=== PATIENT | male | born 1970 | race Hispanic/Latino ===

== ENCOUNTER → 2025-06-22 | Outpatient (CLI) | payer OTHER ==
[2025-06-22 21:22] VITALS: PULSE 52; RESP 12
[2025-06-22 22:00] VITALS: PULSE 54; RESP 12
[2025-06-22 22:35] VITALS: PULSE 53; RESP 12
[2025-06-22 23:06] VITALS: PULSE 53; RESP 10
[2025-06-22 23:36] VITALS: PULSE 51; RESP 12
[2025-06-23] VITALS (19 sets, daily range): PULSE 48–59; RESP 5–16
== END | disposition home or self-care (01) ==
LOC: SLP 19:38
PROVIDERS: ATTEND Nurse Practitioner Family
DX: G47.33 Obstructive sleep apnea (adult) (pediatric) (principal); R06.83 Snoring
CPT/HCPCS: 95811